=== PATIENT | female | born 1935 | race Caucasian/White ===

== ENCOUNTER → 2017-01-19 | Outpatient (CLI) | payer BC ==
[~2017-01-19] MED LIST: ACET325T9 PO; CALC600T4 PO; CHOL500016 PO; DULO30CA2 PO; FLUT16SP2 NS; GLUC100018 PO; GUAI600T47 PO; HYDR12.58 PO; LEVO150T PO; MULT-505 PO; NIFE60TA12 PO; NORT25CA PO; OMEG300C PO; POTA99TA4 PO; PROP80CA3 PO; SIMV40TA3 PO
--- NOTE | 2017-01-19 14:33 | RAD ---
APPROVED REPORT Patient Location : OUT-PATIENT Indications venous insufficiency Deep System Deep Venous Reflux present : Yes Greater Saphenous Veins (GSV) Significant venous relux noted in the LEFT GSV at the following levels : Superficial Femoral Junction , Proximal Thigh Findings Lui scale images of the right great saphenous vein do not demonstrate any evidence of thrombus on li mited imaging. The right great saphenous vein measures 4.3 mm and does not reflux. The right lesser s aphenous vein also does not show any evidence of reflux. The left great saphenous vein at the saphenofemoral junction and on limited imaging throughout its co urse does not demonstrate any evidence of thrombus. The great saphenous vein measures approximately 6 .1 mm in reflux is approximately 2.2 seconds in the proximal segments. The left lesser saphenous vein does not show any evidence of reflux. Critical Notification Critical Value: No <Conclusion> 1. Positive for reflux in the left greater saphenous vein. Otherwise grossly normal.
== END | disposition home or self-care (01) ==
LOC: US 12:08
PROVIDERS: ATTEND Internal Medicine Cardiovascular Disease
DX: I87.2 Venous insufficiency (chronic) (peripheral) (principal); K21.9 Gastro-esophageal reflux disease without esophagitis
CPT/HCPCS: 93970

== ENCOUNTER → 2017-01-20 | Outpatient (CLI) | payer BC ==
[~2017-01-20] MED LIST changes: +REGADENOSON 0.4 MG/5 ML DISP.SYRIN. IV ONE
--- NOTE | 2017-01-20 10:42 | CARD ---
APPROVED REPORT EXAM: Two-dimensional and M-mode echocardiogram with Doppler and color Doppler. Other Information Quality : GoodHR: 60bpm Rhythm : PVC's INDICATION Aortic insufficiency RISK FACTORS Hypertension 2D DIMENSIONS RVDd2.5 (2.9-3.5cm)Left Atrium(2D)3.7 (1.6-4.0cm) IVSd0.9 (0.7-1.1cm)Aortic Root(2D)2.9 (2.0-3.7cm) LVDd5.7 (3.9-5.9cm)LVOT Diameter2.4 (1.8-2.4cm) PWd0.8 (0.7-1.1cm)LVDs4.0 (2.5-4.0cm) FS (%) 30.1 %SV91.6 ml LVEF(%)56.6 (>50%) Aortic Valve AoV Peak Jose.108.5cm/sAoV VTI22.0cm AO Peak GR.4.7mmHgLVOT Peak Jose.88.3cm/s AO Mean GR.2mmHgAVA (VMAX)3.72cm2 AI P 1/2 Pyvo193ef Mitral Valve MV E Pmfugfif05.1cm/sMV E Peak Gr.2mmHg MV DECEL [id number] A Fhxhgyzz17.6cm/s MV E Mean Gr.1mmHgE/A Ratio0.8 MV A Nqofeevm174kr Pulmonary Valve PV Peak Ltpglkph42.8cm/s Tricuspid Valve TR P. Obcduhnk458bm/sTR Peak Gr.33mmHg Pulmonary Vein S1 Bcbvukwm47.6cm/sD2 Mawsdxtd91.7cm/s PVa qkdhnfmd80xzvj LEFT VENTRICLE The left ventricle is normal size. There is normal left ventricular wall thickness. The left ventricu lar systolic function is normal and the ejection fraction is within normal range. The Ejection Fracti on is 50-55%. There is normal LV segmental wall motion. Transmitral Doppler flow pattern is Grade I-a bnormal relaxation pattern. RIGHT VENTRICLE The right ventricle is normal size. There is normal right ventricular wall thickness. The right ventr icular systolic function is normal. ATRIA The left atrium is mildly dilated. The right atrium size is normal. The interatrial septum is intact with no evidence for an atrial septal defect or patent foramen ovale as noted on 2-D or Doppler imagi ng. AORTIC VALVE The aortic valve is mildly sclerotic. The aortic valve is trileaflet. Doppler and Color Flow revealed mild to moderate aortic regurgitation. There is no significant aortic valvular stenosis. MITRAL VALVE Mitral annular calcification is mild. The mitral valve leaflets are thickened. There is borderline mi tral valve prolapse of the posterior leaflet. There is no mitral valve stenosis. Doppler and Color Fl ow revealed mild mitral regurgitation. TRICUSPID VALVE Doppler and Color Flow revealed mild tricuspid regurgitation. The pulmonary artery systolic pressure is estimated at 36 mmHg. PULMONIC VALVE Doppler and Color Flow revealed mild pulmonic valvular regurgitation. There is no pulmonic valvular s tenosis. GREAT VESSELS The aortic root is normal in size. The ascending aorta is normal in size. The IVC is normal in size a nd collapses >50% with inspiration. PERICARDIAL EFFUSION There is no evidence of significant pericardial effusion. Critical Notification Critical Value: No <Conclusion> The left ventricular systolic function is normal and the ejection fraction is within normal range. Th e Ejection Fraction is 50-55%. There is normal LV segmental wall motion. Doppler and Color Flow revealed mild to moderate aortic regurgitation.
--- NOTE | 2017-01-20 12:50 | RAD ---
APPROVED REPORT Test Type: Pharmacological Stress Nurse/Tech: Allen Loera RN Test Indications: Dyspnea on exertion Cardiac History: see ehr Medications: see ehr Medical History: see ehr Resting ECG: SR w/ PAC Resting Heart Rate: 72 bpm Resting Blood Pressure: 131/62mmHg Pretest Chest Pain: None Nurse/Tech Notes Lungs CTA, S1, S2 Consent: The procedure was explained to the patient in lay terms. Informed consent was witnessed. Norm eout was entered into [employer]. History and Stress Test performed by [facility] L [employer] Details Pharmacologic stress testing was performed using 0.4mg per 5ml of regadenoson given intravenously ove r 7-10 seconds. Stress Symptoms No chest pain or symptoms. POST EXERCISE Reason for Termination: Infusion complete Max HR: 95 bpm Max Blood Pressure: 129/63mmHg Blood Pressure response to exercise: Normal blood pressure response during stress. Chest Pain: No. Arrhythmia: No. ST Change: No. INTERPRETATION Stress EKG Conclusion: Baseline EKG showed sinus rhythm with PAC's. No ischemic changes at peak stre ss. No arrhythmias. Imaging Protocol IMAGE PROTOCOL: Rest Tc-99m/stress Tc-99m 1 day Rest: Stress: Viability: Radiopharm.Tc99m NtfpzmirrWx73m Sestamibi Dose11.3mCi 32mCi Duration 15min. 10min. Img Date 01/20/2017 01/20/2017 Inj-Img Dfvo79zeu. 60min. Rest Admin Site:IV - Left AntecubitalAdministrator:DIAMOND Balderrama Stress Admin Site: IV - Left AntecubitalAdministrator: GRACIELA Chan, ARRT (R)(N) STRESS DATA End Diast. Vol.66.0mlAv. Heart Rate81.0bpm End Syst. Vol.16.0mlCO Index BSA0.0L/min Myocardial Olwm499.0gEject. Qmkwqgpc72.0% Stress Rates Pk. Fill Rate3.83EDV/secLVtime Pk. Fill 209.83msec Pk. Empty Rate4.59ESV/secLVtime Pk. Ydbvl930.18msec 08/11 Pk. Fill0.56EDV/sec Stress Scores Regional WT0.00Summed WT4.00 Regional WM0.00Summed WM0.00 Study quality was good. Left Ventricular size was Normal at Rest and Stress. Lung uptake was Normal. Left Ventricular ejection fraction is 76%. The rest and stress images show normal perfusion, normal contraction and thickening. LV Perf. Quant 17 Seg. SSS3.00 17 Seg. SRS5.00 17 Seg. SDS0.00 Stress Defect Extent (% LAD)0.00Rest Defect Extent (% LAD)0.00Rev. Defect Extent (% LAD)0.00 Stress Defect Extent (% LCX) 22.50Rest Defect Extent (% LCX)36.30Rev. Defect Extent (% LCX)0.00 Stress Defect Extent (% RCA)0.00Rest Defect Extent (% RCA)0.00Rev. Defect Extent (% RCA)0.00 Stress Defect Extent (% KITTY)4.60Rest Defect Extent (% KITTY)10.70Rev. Defect Extent (% KITTY)0.00 Conclusion 1. Regadenoson cardioisotope stress test did not show any evidence of ischemia or infarct. 2. Normal left ventricular systolic function with ejection fraction calculated at 76%. 3. Low risk for cardiac events.
== END | disposition home or self-care (01) ==
LOC: ECHO 07:45
PROVIDERS: ATTEND Internal Medicine Cardiovascular Disease
DX: I08.3 Combined rheumatic disorders of mitral, aortic and tricuspid valves (principal)
CPT/HCPCS: 78452; 93017; 93306; 96374; 96375; 96376; A9500; J2785

== ENCOUNTER → 2017-07-12 | Outpatient (CLI) | payer BC ==
[~2017-07-12] MED LIST changes: +LIDOCAINE 1%/EPI 1:100,000 50 ML, SODIUM BICARBONATE VIAL 5 MEQ in IV NORMAL SALINE 100... SQ ONE; -REGADENOSON 0.4 MG/5 ML DISP.SYRIN. IV ONE
--- NOTE | 2017-07-12 13:38 | CARD ---
APPROVED REPORT Patient StatusOUT-PATIENT Clinical Aide: Eli Carnes RVT; Lion Singer Procedure(s) performed: Endovenous radiofrequency ablation of the left greater saphenous vein. INDICATION FOR PROCEDURE The indication(s) include : Symptomatic Chronic Venous Insufficiency with Varicose Veins, lower extre mity pain and edema. PROCEDURE NARRATIVE The patient was transferred to the procedure suite and the insufficient saphenous vein was mapped by ultrasound and diagrammed on the underlying skin. The depth and diameter of the vein(s) to be treate d was documented. The varicose tributary veins and suitable access sites were identified and mapped as well. The patient was then positioned supine on the procedure table. The entire limb was sterile ly prepared and the lower extremity and treatment table were sterilely draped. The RF catheter was placed on the sterile field, flushed and wiped down, prepared, and connected by a sterile cable. The patient was placed in reverse-Trendelenburg position and local anesthesia was instilled in the sk in overlying the access site. A skin incision was made overlying the identified and mapped greater s aphenous vein entry site. The vein was punctured through the incision and using ultrasound guidance and the Seldinger technique a guide wire was introduced through the needle which was then exchanged o ebony the guide wire for a 7 F sheath. The guide wire was removed and the sheath was flushed. The RF probe was placed into the vein through the sheath and positioned at a point just distal (about 0.5 to 1 cm) to the entrance point of the superficial epigastric artery using ultrasound guidance. After the RF probe position was verified by the ultrasound, tumescent anesthesia was infiltrated, und er ultrasound guidance, precisely into the perivenuus compartment along the entire length of vein fro m the entry site to the saphenofemoral junction until a "halo" of fluid was noted around the vein. The patient was then placed in Trendelenburg position. After the RF probe position was again confirm ed with ultrasound imaging, moderate external compression was applied over the RF heating element, an d RF energy was applied. The probe was withdrawn sequentially in 6.5 cm steps with slight overlap of 7 cm segments of ablation and monitored to keep the probe temperature at 120 degrees Celsius and the generator output well below its maximum power. Treatment Segments: 10 Total Length: 52 cm. Tot al Ablation time: 3 minutes 20 seconds. Repeat ultrasound of the saphenous vein was performed confirming successful treatment. The catheter and sheath were withdrawn and hemostasis established with direct pressure. After assuring hemostasis , the skin incision over the saphenous vein was closed with a bandage and an external compression kartik ssing was applied from the level of the foot to the most proximal level of the thigh.
== END | disposition home or self-care (01) ==
LOC: VNUS 12:22
PROVIDERS: ATTEND Internal Medicine Cardiovascular Disease
DX: I87.2 Venous insufficiency (chronic) (peripheral) (principal); I83.892 Varicose veins of left lower extremity with other complications; Z88.1 Allergy status to other antibiotic agents; Z88.2 Allergy status to sulfonamides; Z88.8 Allergy status to other drugs, medicaments and biological substances
CPT/HCPCS: 36475; J3490; J7030

== ENCOUNTER → 2017-07-13 | Outpatient (CLI) | payer BC ==
[~2017-07-13] MED LIST changes: -LIDOCAINE 1%/EPI 1:100,000 50 ML, SODIUM BICARBONATE VIAL 5 MEQ in IV NORMAL SALINE 100... SQ ONE
--- NOTE | 2017-07-13 15:12 | RAD ---
APPROVED REPORT Left Lower Extremity Venous Study for DVT Patient Location: OUT-PATIENT Indications Post Op GSV ablation 07-12-17; Check for DVT Findings Grayscale images of the left lower extremity do not reveal any evidence of thrombus in the common fem oral, superficial femoral, popliteal segments. The veins appear to be compressible. Below the knee th ere is spontaneous flow noted with gross compressibility also evident. The left great saphenous vein has thrombus consistent with recent ablation. There is no flow noted on color Doppler evaluation. Critical Notification Critical Value: No <Conclusion> 1. No evidence of DVT in the left lower extremity, status post successful left GSV ablation.
== END | disposition home or self-care (01) ==
LOC: KCIC US 12:39
PROVIDERS: ATTEND Internal Medicine Cardiovascular Disease
DX: I82.492 Acute embolism and thrombosis of other specified deep vein of left lower extremity (principal); Z98.890 Other specified postprocedural states
CPT/HCPCS: 93971

== ENCOUNTER → 2018-02-23 | Outpatient (CLI) | payer BC | END | disposition home or self-care (01) | LOC: ECHO 13:08 | DX: I08.3 Combined rheumatic disorders of mitral, aortic and tricuspid valves (principal) | CPT/HCPCS: 93306 ==

== ENCOUNTER → 2019-03-09 | Outpatient (CLI) | payer BC ==
--- NOTE | 2019-03-09 14:28 | CARD ---
MR#: [id number] Date of Study: 03/09/2019 Ordering Physician: GINNA NEFF, Referring Physician: GINNA NEFF, Tech: Eli Kessler APPROVED REPORT EXAM: Two-dimensional and M-mode echocardiogram with Doppler and color Doppler. Other Information Quality : AverageHR: 70bpm INDICATION Aortic Valve Disease RISK FACTORS Hypertension 2D DIMENSIONS Left Atrium(2D)3.0 (1.6-4.0cm)IVSd1.0 (0.7-1.1cm) Aortic Root(2D)2.7 (2.0-3.7cm)LVDd4.9 (3.9-5.9cm) LVOT Diameter2.2 (1.8-2.4cm)PWd0.9 (0.7-1.1cm) LVDs2.8 (2.5-4.0cm)FS (%) 43.6 % SV85.7 mlLVEF(%)74.6 (>50%) Aortic Valve AoV Peak Jose.113.0cm/sAoV VTI19.9cm AO Peak GR.5.1mmHgLVOT Peak Jose.74.4cm/s AO Mean GR.2mmHgAVA (VMAX)2.59cm2 AI P 1/2 Wjps379sw Mitral Valve MV E Bnxfuzsy07.4cm/sMV E Peak Gr.154mmHg MV DECEL [id number] A Urxhcqaz55.1cm/s MV E Mean Gr.1mmHgE/A Ratio0.7 Pulmonary Valve PV Peak Kvzrnxlk297.7cm/s Tricuspid Valve TR P. Tnegzhav163lv/sRAP CYVHRBGF5dfLi TR Peak Gr.40dkXpEKXK81ajZe Pulmonary Vein S1 Gbtoplsl18.1cm/sD2 Dzelijqy28.3cm/s PVa jhsncoke501dcqr LEFT VENTRICLE The left ventricle is normal size. There is normal left ventricular wall thickness. The left ventricu lar systolic function is normal. The Ejection Fraction is 55-60%. There is normal LV segmental wall m otion. Transmitral Doppler flow pattern is Grade I-abnormal relaxation pattern. RIGHT VENTRICLE The right ventricle is normal size. There is normal right ventricular wall thickness. The right ventr icular systolic function is normal. ATRIA The left atrium is borderline dilated. The right atrium size is normal. The interatrial septum is int act with no evidence for an atrial septal defect or patent foramen ovale as noted on 2-D or Doppler i maging. AORTIC VALVE The aortic valve is thickened but opens well. Doppler and Color Flow revealed mild to moderate aortic regurgitation. There is no significant aortic valvular stenosis. MITRAL VALVE The mitral valve is normal in structure and function. There is no evidence of mitral valve prolapse. There is no mitral valve stenosis. Doppler and Color-flow revealed mild mitral regurgitation. TRICUSPID VALVE The tricuspid valve is normal in structure and function. Doppler and Color Flow revealed mild to mode rate tricuspid regurgitation with an estimated PAP of 36 mmHg. There is no tricuspid valve prolapse o r vegetation. There is no tricuspid valve stenosis. PULMONIC VALVE The pulmonary valve is normal in structure and function. Doppler and Color Flow revealed trace pulmon ic valvular regurgitation. GREAT VESSELS The aortic root is normal in size. The IVC is normal in size and collapses >50% with inspiration. PERICARDIAL EFFUSION There is no evidence of significant pericardial effusion. Critical Notification Critical Value: No <Conclusion> The left ventricular systolic function is normal. The Ejection Fraction is 55-60%. There is normal LV segmental wall motion. Transmitral Doppler flow pattern is Grade I-abnormal relaxation pattern. Mild to moderate aortic regurgitation. Mild mitral regurgitation. Mild to moderate tricuspid regurgitation with an estimated PAP of 36 mmHg. There is no evidence of significant pericardial effusion. Signed by : Ginna Neff, Electronically Approved : 03/09/2019 14:27:32
== END | disposition home or self-care (01) ==
LOC: ECHO 13:06
PROVIDERS: ATTEND Internal Medicine Cardiovascular Disease
DX: I08.3 Combined rheumatic disorders of mitral, aortic and tricuspid valves (principal)
CPT/HCPCS: 93306

== ENCOUNTER → 2019-09-05 | Outpatient (CLI) | payer BC ==
[~2019-09-05] MED LIST changes: +SIMV40TA18 PO; -SIMV40TA3 PO
--- NOTE | 2019-09-05 11:53 | KCIC ---
EXAM: RIGHT UPPER QUADRANT ULTRASOUND. HISTORY: Right upper quadrant pain. COMPARISON: None. FINDINGS: Sonographic evaluation of the right upper quadrant was performed. The liver appears normal in parenchymal echotexture. There are no focal lesions. The gallbladder is unremarkable without evidence of stones, wall thickening or pericholecystic fluid. There is no sonographic Polanco sign. The common duct measures 6.5 mm. The visualized portions of the head and body of the pancreas reveal no abnormality. The right kidney measures at least 8.4 cm. Cortical thickness and echogenicity are preserved. There is no hydronephrosis. A cyst at the upper pole measures 3.5 x 2.6 x 2.9 cm. There are low-level internal echoes suggesting proteinaceous components. There is no clear solid component or internal perfusion. The visualized portions of the abdominal aorta and inferior vena cava are grossly patent and normal in caliber. IMPRESSION: 1. No cause for acute pain is identified. 2. The right kidney measures small at 8.4 cm suggesting mild atrophy. 3. Mildly complicated 3.5 cm cyst at the right renal upper pole, most likely benign. Follow-up could be considered in one year if there is persistent concern. Electronically signed by: Kathe Eugene MD (09/05/2019 11:50 AM) [facility]
== END | disposition home or self-care (01) ==
LOC: KCIC US 07:53
PROVIDERS: ATTEND Nurse Practitioner Family
DX: N28.1 Cyst of kidney, acquired (principal)
CPT/HCPCS: 76705

== ENCOUNTER → 2019-09-18 | Outpatient (CLI) | payer BC ==
--- NOTE | 2019-09-18 15:52 | KCIC ---
Renal ultrasound dated 09/18/2019. No comparison available. Clinical data indication: Follow-up right renal cyst. FINDINGS: Right kidney measures 9.1 cm in length. Left kidney measures 9.3 cm in length. There is a simple cyst at the upper pole right kidney that measures 3.1 cm maximum dimension. There is a simple cyst at the midpole left kidney that measures 3.2 cm maximum dimension. No apparent solid mass. No hydronephrosis. Urinary bladder is unremarkable. IMPRESSION: 1. No acute sonographic abnormality. No hydronephrosis. 2. Small simple cysts at each kidney. Electronically signed by: Luis Terry MD (09/18/2019 2:57 PM) [facility]
== END | disposition home or self-care (01) ==
LOC: KCIC US 08:42
PROVIDERS: ATTEND Internal Medicine
DX: N28.1 Cyst of kidney, acquired (principal)
CPT/HCPCS: 76770

== ENCOUNTER 2019-10-09 06:58 | Outpatient (CLI) | payer BC ==
[2019-10-09] VITALS (10 sets, daily range): BP systolic 103–157; BP diastolic 57–83
[~2019-10-09] VITALS: Ht 152.4 cm; Wt 72.6 kg
[2019-10-09] MEDS ORDERED: MELO15TA23 PO (07:30)
[2019-10-09] MEDS ORDERED: GABA300C18 PO (07:30)
[2019-10-09 07:33] LABS: CALCIUM 10.3 mg/dL (8.5-10.1); CREATININE 1.5 mg/dL (0.6-1.0); GFR 32.9; POTASSIUM 4.3 mmol/L (3.5-5.1)
[2019-10-09 07:34] LABS: HEMATOCRIT 34.7 % (36.0-47.0); HEMOGLOBIN 11.7 g/dL (12.0-15.5); RED BLOOD COUNT 3.62 x10^6/uL (3.50-5.40); RED CELL DISTRIBUTION WIDTH 12.7 % (11.5-14.5); WHITE BLOOD COUNT 9.8 x10^3/uL (4.0-11.0)
[2019-10-09] MEDS ORDERED: LIDOCAINE 1% PF 2 ML VIAL. ONE (07:43)
[2019-10-09] MEDS ORDERED: IODIXANOL 320 MG/ML 100 ML VIAL. ONE ×2 (07:43→09:03)
[2019-10-09 07:46] LABS: PROTHROMBIN TIME PATIENT 13.5 SEC (11.7-14.0)
[2019-10-09] MEDS ORDERED: fentaNYL PF VIAL 100 MCG/2 ML VIAL ONE (08:32)
[2019-10-09] MEDS ORDERED: MIDAZOLAM HCL/PF 2 MG/2 ML VIAL. ONE (08:32)
[2019-10-09] MEDS ORDERED: VERAPAMIL 5 MG/2 ML VIAL. ONE (08:33)
[2019-10-09] MEDS ORDERED: HEPARIN for IV BOLUS 10,000 UNIT/10 ML VIAL. ONE (08:33)
[2019-10-09] MEDS ORDERED: NITROGLYCERIN 200 MCG/2 ML SYRINGE FOR CATH/VASC LAB. ONE (08:33)
[2019-10-09] MEDS ORDERED: NITROGLYCERIN 200 MCG/2 ML SYRINGE FOR CATH/VASC LAB. IART ONE (09:15)
[2019-10-09] MEDS ORDERED: VERAPAMIL 5 MG/2 ML VIAL. IART ONE (09:15)
[2019-10-09] MEDS ORDERED: LIDOCAINE 1% PF 2 ML VIAL. INJ ONE (09:15)
[2019-10-09] MEDS ORDERED: HEPARIN for IV BOLUS 10,000 UNIT/10 ML VIAL. IART ONE (09:15)
[2019-10-09] MEDS ORDERED: CONTRAST GIVEN. MC PRN (09:15)
[2019-10-09] MEDS ORDERED: MIDAZOLAM HCL/PF 2 MG/2 ML VIAL. IV ONE (09:15)
[2019-10-09] MEDS ORDERED: fentaNYL PF VIAL 100 MCG/2 ML VIAL IV ONE (09:15)
[2019-10-09] MEDS ORDERED: IODIXANOL 320 MG/ML 100 ML VIAL. IART ONE (09:15)
[2019-10-09] MEDS ORDERED: IV 1/2 NORMAL SALINE 1,000 ML IV SCH (09:17)
--- NOTE | 2019-10-09 09:17 | PDOC ---
MODERATE SEDATION ASSESSMENT RISKS/ALTERNATIVES Risks/Alternatives Risks and alternatives of this type of sedation and procedure discussed with: RISK/ALTERNATIVES: Patient H & P ON CHART H & P H & P on chart and reviewed for co-morbid conditions and appropriate labs. H&P ON CHART: Yes STATUS PREG STATUS ASSESSED: N/A MEDS/ALLERGIES REVIEWED Meds/Allergies Reviewed Medications and Allergies including time and route of recently administered narcotics and sedatives. MEDS/ALLERGIES REVIEWED: Yes ASA RATING ASA RATING: III AIRWAY ASSESSMENT Airway Assessment Airway patency, oral function limitations, presence of caps, crowns, dentures, partials, and ability to extend neck assessed. AIRWAY ASSESSMENT: Yes MALLAMPATI SCORE MALLAMPATI SCORE: II PRE-SEDATION ASSESSMENT PRE-SEDATION ASSESSMENT: Yes GINNA GALINDO MD Oct 09, 2019 09:17
--- NOTE | 2019-10-09 09:24 | CARD ---
MR#: [id number] Date of Study: 10/09/2019 Ordering Physician: GINNA NEFF, Referring Physician: GINNA NEFF, Tech: Costa Reina APPROVED REPORT Technologist: Costa Reina Nurse: Zabrina Thompson Procedure(s) performed: Left heart catheterization, selective coronary angiography via right transrad ial approach fl time: 4.7 mins dose: 25 gycm2 contrast: 80 ml moderate sedation: 31 mins INDICATION The indication(s) include : unstable angina . CSHA Clinical Frailty Scale HA Clinical Frailty Scale: Mildly Frail Heart Failure Heart Failure: No PROCEDURE NARRATIVE After explaining the risks, benefits and alternative options, informed consent was obtained from emma ent. Patient was brought to the cardiac [place] and right wrist was prepped and draped in the usual fashion after confirming a positive modified Hubert's test. Arterial access was obtained in the rig t radial artery and a 6 Yemeni sheath was inserted. 6 Yemeni David catheter was used to perform brook ective angiography of the left and right coronary arteries. LVEDP and transaortic gradients were andrea ured. Left ventriculography was not performed since recent 2-D echo showed normal LV systolic functio n. Patient tolerated the procedure well. Hemostasis was achieved using TR band. There were no immed iate complications. The following findings were noted. FINDINGS 1. Hemodynamics: Left ventricular end-diastolic pressure of 22 mmHg consistent with mild acute on ch ronic diastolic heart failure. No pullback gradient across the aortic valve. 2. Left ventriculography: Normal left ventricle systolic function with ejection fraction estimated at 60%. No significant mitral regurgitation seen. 3. Coronary angiography: a. The left main coronary artery arose from the left sinus of Valsalva, gave rise to the left anteri or descending and left circumflex arteries and did not show any significant stenosis. b. The left anterior descending artery showed 30% stenosis in the midsegment. c. The left circumflex artery did not show any significant stenosis. d. The right coronary artery was a dominant vessel arising from the right sinus of Valsalva that did not show any significant stenosis. Conclusion 1. 30% stenosis involving left anterior descending artery without any lesions needing intervention. 2. Mild acute on chronic diastolic heart failure as evidenced by elevated LVEDP. Recommendations Medical Therapy Signed by : Ginna Neff, Electronically Approved : 10/09/2019 09:24:08
[2019-10-09] MEDS ORDERED: NITROGLYCERIN SUBLINGUAL 0.4 MG BOTTLE OF 25. SL PRN (09:30)
[2019-10-09] MEDS ORDERED: FUROSEMIDE 20 MG/2 ML VIAL. IVP ONE (09:45)
--- NOTE | 2019-10-09 11:35 | NUR ---
discharge instructions reviewed with pt and family. Pt ambulated and tolerated PO. PIv dc'd. right TR band removed and arm board reapplied. Pt home with family.
== END 2019-10-09 12:04 | disposition home or self-care (01) ==
LOC: CCL 06:58
PROVIDERS: ATTEND Internal Medicine Cardiovascular Disease
DX: I25.110 Atherosclerotic heart disease of native coronary artery with unstable angina pectoris (principal)
CPT/HCPCS: 36415; 80048; 85027; 85610; 93458; 99152; 99153; C1769; C1892; J1644; J1940; J2250; J3010; J3490; Q9967

== ENCOUNTER → 2020-08-20 | Outpatient (CLI) | payer BC ==
[2019-10-09 11:23] VITALS: BP 117/59
[~2020-08-20] MED LIST changes: -CALC600T4 PO; +CALC600T6 PO; +GABA300C18 PO; +MELO15TA23 PO
--- NOTE | 2020-08-20 13:27 | CARD ---
MR#: [id number] Date of Study: 08/20/2020 Ordering Physician: GINNA GALINDO, Referring Physician: GINNA GALINDO Tech: Luna Chung [facility] APPROVED REPORT EXAM: Two-dimensional and M-mode echocardiogram with Doppler and color Doppler. Other Information Quality : AverageHR: 72bpm Rhythm : NSR INDICATION Aortic Valve Disease RISK FACTORS Hypertension Hyperlipidemia 2D DIMENSIONS RVDd2.5 (2.9-3.5cm)Left Atrium(2D)3.9 (1.6-4.0cm) IVSd0.9 (0.7-1.1cm)Aortic Root(2D)3.4 (2.0-3.7cm) LVDd4.3 (3.9-5.9cm)LVOT Diameter2.0 (1.8-2.4cm) PWd0.9 (0.7-1.1cm)LVDs3.0 (2.5-4.0cm) FS (%) 31.0 %SV48.6 ml LVEF(%)59.1 (>50%) Aortic Valve AoV Peak Jose.90.3cm/sAoV VTI18.6cm AO Peak GR.3.3mmHgLVOT Peak Jose.91.0cm/s AO Mean GR.1mmHgAVA (VMAX)3.29cm2 AI P 1/2 Htjk201oz Pulmonary Valve PV Peak Dilaougk67.9cm/s Tricuspid Valve TR P. Xncwmspg227ws/sTR Peak Gr.25mmHg LEFT VENTRICLE The left ventricle is normal size. There is normal left ventricular wall thickness. The left ventricu lar systolic function is normal and the ejection fraction is within normal range. Estimated ejection fraction 50-55% There is normal LV segmental wall motion. Transmitral Doppler flow pattern is Grade I -abnormal relaxation pattern. RIGHT VENTRICLE The right ventricle is normal size. There is normal right ventricular wall thickness. The right ventr icular systolic function is normal. ATRIA The left atrium is mildly dilated. The right atrium is mildly dilated. The interatrial septum is inta ct with no evidence for an atrial septal defect or patent foramen ovale as noted on 2-D or Doppler im aging. AORTIC VALVE The aortic valve is thickened but opens well. Doppler and Color Flow revealed mild aortic regurgitati on. There is no significant aortic valvular stenosis. MITRAL VALVE The mitral valve is normal in structure and function. There is no evidence of mitral valve prolapse. There is no mitral valve stenosis. Doppler and Color-flow revealed mild to moderate mitral regurgitat ion. TRICUSPID VALVE The tricuspid valve is normal in structure and function. Doppler and Color Flow revealed mild tricusp id regurgitation. Estimated PAP 30 mmHg. There is no tricuspid valve stenosis. PULMONIC VALVE Doppler and Color Flow revealed trace pulmonic valvular regurgitation. There is no pulmonic valvular stenosis. GREAT VESSELS The aortic root is normal in size. The ascending aorta is normal in size. The IVC is normal in size a nd collapses >50% with inspiration. PERICARDIAL EFFUSION There is no evidence of significant pericardial effusion. Critical Notification Critical Value: No <Conclusion> The left ventricular systolic function is normal and the ejection fraction is within normal range. E stimated ejection fraction 50-55% There is normal LV segmental wall motion. Doppler and Color Flow revealed mild aortic regurgitation. Doppler and Color-flow revealed mild to moderate mitral regurgitation. Signed by : Ralph Atkins, Electronically Approved : 08/20/2020 13:27:13
== END ==
LOC: ECHO 11:00
PROVIDERS: ATTEND Internal Medicine Cardiovascular Disease
DX: I08.3 Combined rheumatic disorders of mitral, aortic and tricuspid valves (principal)
CPT/HCPCS: 93306

== ENCOUNTER → 2021-04-10 | Outpatient (CLI) | payer BC ==
[2019-10-09 11:23] VITALS: BP 117/59
[~2021-04-10] MED LIST changes: -CALC600T6 PO; +CALC600T60 PO; +REGADENOSON 0.4 MG/5 ML DISP.SYRIN. IV ONE
--- NOTE | 2021-04-10 16:07 | RAD ---
MR#: [id number] Date of Study: 04/10/2021 Ordering Physician: GINNA GALINDO, Referring Physician: ELYSSA BEDOYA Tech: RT Paolo Elizondo) (N) APPROVED REPORT Test Type: Pharmacological Stress Nurse/Tech: Anais Ortiz RN Test Indications: CAD Cardiac History: Hypertension Medications: See Electronic Medical Record Medical History: See Electronic Medical Record Resting ECG: SA with BBB and PACs and PVCs Resting Heart Rate: 86 bpm Resting Blood Pressure: 140/69mmHg Pretest Chest Pain: No chest pain Nurse/Tech Notes S1,S2 and lungs diminished in the bases. Consent: The procedure was explained to the patient in lay terms. Informed consent was witnessed. Norm eout was entered into [employer]. History and Stress Test performed by RT Paolo Griffith) (N) Pharm. Details Pharmacologic stress testing was performed using 0.4mg per 5ml of regadenoson given intravenously ove r 7-10 seconds. Stress Symptoms Headache POST EXERCISE Reason for Termination: Infusion complete Target HR: No Max HR: 108 bpm 96% of Maximum Predicted HR: 112 bpm Blood Pressure response to exercise: Normal blood pressure response during stress. Heart Rate response to exercise: WNL Chest Pain: No. Arrhythmia: Yes. PACs and PVCs ST Change: No. INTERPRETATION Stress EKG Conclusion: Baseline EKG showed sinus rhythm. No ischemic changes at peak stress. No arr hythmias. Imaging Protocol IMAGE PROTOCOL: Rest Tc-99m/stress Tc-99m 1 day Rest: Stress: Viability: Radiopharm.Tc99m JiwuypspcEe40p Sestamibi Dose10.4mCi 33mCi Duration 13min. 13min. Img Date 04/10/2021 04/10/2021 Inj-Img Otzs38djj. 60min. Rest Admin Site:IV - Left AntecubitalAdministrator:RT Paolo Griffith)(N) Stress Admin Site: IV - Left AntecubitalAdministrator: DIAMOND Balderrama STRESS DATA End Diast. Vol.64.0mlLVEDV index BSA38.0ml End Syst. Vol.19.0mlLVESV index BSA11.0ml Myocardial Bokr420.0gEject. Vukwgwgp91.0% Stress Scores Regional WT1.00Summed WT4.00 Regional WM0.00Summed WM2.00 Study quality was good. Left Ventricular size was Normal at Rest and Stress. Lung uptake was . Left Ventricular ejection fraction is 68%. The rest and stress images show normal perfusion, normal contraction and thickening. LV Perf. Quant 17 Seg. SSS0.00 17 Seg. SRS2.00 17 Seg. SDS0.00 Stress Defect Extent (% LAD)0.00Rest Defect Extent (% LAD)0.00Rev. Defect Extent (% LAD)0.00 Stress Defect Extent (% LCX) 0.00Rest Defect Extent (% LCX)10.00Rev. Defect Extent (% LCX)0.00 Stress Defect Extent (% RCA)0.00Rest Defect Extent (% RCA)0.00Rev. Defect Extent (% RCA)0.00 Stress Defect Extent (% KITTY)0.00Rest Defect Extent (% KITTY)2.60Rev. Defect Extent (% KITTY)0.00 Conclusion 1. Regadenoson cardioisotope stress test did not show any evidence of ischemia or infarct. 2. Normal left ventricular systolic function with ejection fraction calculated at 68%. 3. Low risk for cardiac events. Signed by : Ginna Galindo, Electronically Approved : 04/10/2021 16:07:02
== END ==
LOC: NM 08:55
PROVIDERS: ATTEND Internal Medicine Cardiovascular Disease
DX: I25.10 Atherosclerotic heart disease of native coronary artery without angina pectoris (principal); R51.9 Headache, unspecified
CPT/HCPCS: 78452; 93017; A9500; J2785

== ENCOUNTER 2021-05-25 20:42 | Emergency (ER) | payer BC ==
[~2021-05-25] VITALS: Ht 152.4 cm; Wt 70.0 kg
[~2021-05-25 20:42] MED LIST changes: -REGADENOSON 0.4 MG/5 ML DISP.SYRIN. IV ONE
[2021-05-25 21:51] LABS: BILIRUBIN,URINE NEGATIVE (NEG); CLARITY,URINE CLEAR; COLOR,URINE YELLOW; NITRITE,URINE NEGATIVE (NEG); PROTEIN,URINE NEGATIVE (NEG-TRACE)
[2021-05-25 21:55] LABS: BACTERIA,URINE 0 /HPF (0-FEW); WBC,URINE OCC /HPF (0-4)
[2021-05-25 21:57] LABS: BARBITURATES NEG (NEG); BENZODIAZEPINES NEG (NEG); CANNABINOIDS NEG (NEG); COCAINE NEG (NEG); METHADONE NEG (NEG); OPIATES NEG (NEG); PHENCYCLIDINE NEG (NEG)
[2021-05-25 22:02] LABS: AMPHETAMINE/METHAMPHETAMINE NEG (NEG)
[2021-05-25 22:05] LABS: BASO # 0.1 x10^3/uL (0.0-0.2); BASO % 1 % (0-3); EOS # 0.1 x10^3/uL (0.0-0.7); EOS % 2 % (0-3); HEMATOCRIT 35.7 % (36.0-47.0); HEMOGLOBIN 12.1 g/dL (12.0-15.5); LYMPH # 1.8 x10^3/uL (1.0-4.8); LYMPH % 27 % (24-48); MEAN CORPUSCULAR HEMOGLOBIN 33 pg (25-35); MEAN CORPUSCULAR HGB CONC 34 g/dL (31-37); MEAN CORPUSCULAR VOLUME 98 fL (79-100); MONO # 0.8 x10^3/uL (0.0-1.1); MONO % 13 % (0-9); NEUT # 3.8 x10^3/uL (1.8-7.7); NEUT % 57 % (31-73); PLATELET COUNT 259 x10^3/uL (140-400); RED BLOOD COUNT 3.64 x10^6/uL (3.50-5.40); RED CELL DISTRIBUTION WIDTH 13.5 % (11.5-14.5); WHITE BLOOD COUNT 6.7 x10^3/uL (4.0-11.0)
--- NOTE | 2021-05-25 22:07 | RAD ---
Exam: CT head INDICATION: Seizure TECHNIQUE: Sequential axial images through the head were obtained without the administration of IV co ntrast. Exposure: One or more of the following in the visualized dose reduction techniques were utilized for this examination: 1. Automated exposure control 2. Adjustment of the MA and/or KV according to patient size 3. Use of iterative of reconstructive technique Comparisons: None FINDINGS: No focal parenchymal lesion or hemorrhage is identified. There is no midline shift or sulcal effaceme nt. Patchy hypodensity in the periventricular white matter. No acute vascular territory infarction is gia ntified. Lui-white distinction is preserved. The ventricular system is within normal limits without compression hydrocephalus. The basal cisterns are well maintained. The visualized portions of the paranasal sinuses and mastoid air cells are well-pneumatized. No acute fractures. IMPRESSION: Moderate small vessel schema change, technically age indeterminate without recent prior imaging. Electronically signed by: Gloria Chandra MD (05/25/2021 10:04 PM) [facility]
--- NOTE | 2021-05-25 22:13 | RAD ---
Exam: Chest one view INDICATION: Seizure TECHNIQUE: Frontal view of the chest Comparisons: None FINDINGS: The cardiomediastinal silhouette and pulmonary vessels are within normal limits. The lung and pleural spaces are clear. Moderate-sized hiatal hernia. IMPRESSION: No acute cardiopulmonary process. Electronically signed by: Gloria Chandra MD (05/25/2021 10:10 PM) [facility]
[2021-05-25 22:23] LABS: CALCIUM 8.8 mg/dL (8.5-10.1); CREATININE 1.3 mg/dL (0.6-1.0); GFR 38.7; POTASSIUM 3.3 mmol/L (3.5-5.1)
[2021-05-25 22:29] LABS: ALBUMIN 3.2 g/dL (3.4-5.0); ALBUMIN/GLOBULIN RATIO 0.9 (1.0-1.7); TOTAL BILIRUBIN 0.3 mg/dL (0.2-1.0); TOTAL PROTEIN 6.7 g/dL (6.4-8.2)
--- NOTE | 2021-05-25 22:31 | PHYS DOC ---
Past Medical History Past Medical History: CAD, Hypertension Smoking Status: Never Smoker Alcohol Use: None General Adult EDM: Chief Complaint: SEIZURE HPI: HPI: Patient is a 86 year old female with a history of CAD, hypertension, who presen ts to the ED today to be evaluated for possible seizure. Patient's daughter states they were in a family meeting, patient stood up to give a speech, they state her eyes rolled back and she was stiff for a few seconds, patient did not fall. Patient did not void on herself or bite her tongue patient can remember everything that happened denies any LOC. Patient has no previous history of seizures. 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 Review of Systems: Review of Systems: Constitutional: Denies fever or chills. [] Eyes: Denies change in visual acuity. [] HENT: Denies nasal congestion or sore throat. [] Respiratory: Denies cough or shortness of breath. [] Cardiovascular: Denies chest pain or edema. [] GI: Denies abdominal pain, nausea, vomiting, bloody stools or diarrhea. [] : Denies dysuria. [] Musculoskeletal: Denies back pain or joint pain. [] Integument: Denies rash. [] Neurologic: Reports possible seizure. Denies headache, focal weakness or sensory changes. [] Psychiatric: Denies depression or anxiety. [] Heart Score: C/O Chest Pain: N/A Risk Factors: Risk Factors: DM, Current or recent (<one month) smoker, HTN, HLP, family history of CAD, obesity. Risk Scores: Score 0 - 3: 2.5% MACE over next 6 weeks - Discharge Home Score 4 - 6: 20.3% MACE over next 6 weeks - Admit for Clinical Observation Score 7 - 10: 72.7% MACE over next 6 weeks - Early Invasive Strategies Allergies: Allergies: Allergies Coded Allergies Type Severity Reaction Last Updated Verified ciprofloxacin Allergy Severe Rash 07/12/17 Yes Sulfa (Sulfonamide Antibiotics) Allergy Mild Headache 12/07/13 Yes alendronate sodium Allergy Unknown Unknown 07/12/17 Yes nabumetone Allergy Unknown Nausea 07/12/17 Yes Physical Exam: PE: Constitutional: Well developed, well nourished, no acute distress, non-toxic appearance. [] HENT: Normocephalic, atraumatic, bilateral external ears normal, oropharynx moist, no oral exudates, nose normal. [] Eyes: PERRLA, EOMI, conjunctiva normal, no discharge. [] Neck: Normal range of motion, no tenderness, supple, no stridor. [] Cardiovascular:Heart rate regular rhythm, no murmur [] Lungs & Thorax: Bilateral breath sounds clear to auscultation [] Abdomen: Bowel sounds normal, soft, no tenderness, no masses, no pulsatile masses. [] Skin: Warm, dry, no erythema, no rash. [] Back: No tenderness, no CVA tenderness. [] Extremities: No tenderness, no cyanosis, no clubbing, ROM intact, no edema. [] Neurologic: Alert and oriented X 3, normal motor function, normal sensory fu nction, no focal deficits noted. Cranial nerves II through XII intact Psychologic: Affect normal, judgement normal, mood normal. [] Current Patient Data: Labs: Laboratory Tests Test 05/25/21 21:10 05/25/21 21:48 Urine Collection Type Unknown Urine Color Yellow Urine Clarity Clear Urine pH 6.0 (<5.0-8.0) Urine Specific Allen 1.010 (1.000-1.030) Urine Protein Negative mg/dL (NEG-TRACE) Urine Glucose (UA) Negative mg/dL (NEG) Urine Ketones (Stick) Negative mg/dL (NEG) Urine Blood Large (NEG) Urine Nitrite Negative (NEG) Urine Bilirubin Negative (NEG) Urine Urobilinogen Dipstick 1.0 mg/dL (0.2 mg/dL) Urine Leukocyte Esterase Negative (NEG) Urine RBC 11-20 /HPF (0-2) Urine WBC Occ /HPF (0-4) Urine Squamous Epithelial Cells Few /LPF Urine Bacteria 0 /HPF (0-FEW) Urine Opiates Screen Neg (NEG) Urine Methadone Screen Neg (NEG) Urine Barbiturates Neg (NEG) Urine Phencyclidine Screen Neg (NEG) Urine Amphetamine/Methamphetamine Neg (NEG) Urine Benzodiazepines Screen Neg (NEG) Urine Cocaine Screen Neg (NEG) Urine Cannabinoids Screen Neg (NEG) Urine Ethyl Alcohol Neg (NEG) White Blood Count 6.7 x10^3/uL (4.0-11.0) Red Blood Count 3.64 x10^6/uL (3.50-5.40) Hemoglobin 12.1 g/dL (12.0-15.5) Hematocrit 35.7 % (36.0-47.0) L Mean Corpuscular Volume 98 fL (79-100) Mean Corpuscular Hemoglobin 33 pg (25-35) Mean Corpuscular Hemoglobin Concent 34 g/dL (31-37) Red Cell Distribution Width 13.5 % (11.5-14.5) Platelet Count 259 x10^3/uL (140-400) Neutrophils (%) (Auto) 57 % (31-73) Lymphocytes (%) (Auto) 27 % (24-48) Monocytes (%) (Auto) 13 % (0-9) H Eosinophils (%) (Auto) 2 % (0-3) Basophils (%) (Auto) 1 % (0-3) Neutrophils # (Auto) 3.8 x10^3/uL (1.8-7.7) Lymphocytes # (Auto) 1.8 x10^3/uL (1.0-4.8) Monocytes # (Auto) 0.8 x10^3/uL (0.0-1.1) Eosinophils # (Auto) 0.1 x10^3/uL (0.0-0.7) Basophils # (Auto) 0.1 x10^3/uL (0.0-0.2) Laboratory Tests 05/25/21 21:48 EKG: EK interpreted by Dr. Castro sinus rhythm with PVCs, heart rate 83 no STEMI [] Radiology/Procedures: Radiology/Procedures: []PROCEDURE: CT HEAD WO CONTRAST Exam: CT head INDICATION: Seizure TECHNIQUE: Sequential axial images through the head were obtained without the administration of IV contrast. Exposure: One or more of the following in the visualized dose reduction techniques were utilized for this examination: 1. Automated exposure control 2. Adjustment of the MA and/or KV according to patient size 3. Use of iterative of reconstructive technique Comparisons: None FINDINGS: No focal parenchymal lesion or hemorrhage is identified. There is no midline shift or sulcal effacement. Patchy hypodensity in the periventricular white matter. No acute vascular territory infarction is identified. Lui-white distinction is preserved. The ventricular system is within normal limits without compression hydrocephalu s. The basal cisterns are well maintained. The visualized portions of the paranasal sinuses and mastoid air cells are well- pneumatized. No acute fractures. IMPRESSION: Moderate small vessel schema change, technically age indeterminate without recent prior imaging. Electronically signed by: Gloria Ritter MD (05/25/2021 10:04 PM) [facility] DICTATED and SIGNED BY: GLORIA RITTER MD DATE: 05/25/[id number] 0 PROCEDURE: PORTABLE CHEST 1V Exam: Chest one view INDICATION: Seizure TECHNIQUE: Frontal view of the chest Comparisons: None FINDINGS: The cardiomediastinal silhouette and pulmonary vessels are within normal limits. The lung and pleural spaces are clear. Moderate-sized hiatal hernia. IMPRESSION: No acute cardiopulmonary process. Electronically signed by: Gloria Ritter MD (05/25/2021 10:10 PM) [facility] DICTATED and SIGNED BY: GLORIA RITTER MD DATE: 05/25/[id number] 0 Course & Med Decision Making: Course & Med Decision Making Pertinent Labs and Imaging studies reviewed. (See chart for details) This is a 86-year-old female patient presenting to the ED today to be evaluated for possible seizure. Patient was in a family meeting and was about to give a speech when the state her eyes rolled back and she was stiff for a few couple seconds. Patient states she was able to recall everything. There was no tongue bitting or voiding on herself. She has no previous history of seizures. Vitals on arrival to the ED temperature 98.2, heart rate 81, respirations 16 on room air, O2 sats 95%, the patient was initially 165/70, it came down after patient settled in the room to 120s over 80s. CT of the head is negative for any acute findings, chest x-ray is negative. Lactic is normal, this patient likely did not have a seizure CBC CMP UA with nothing really acute Patient does continue to be alert oriented x4 no distress. Patient patient and daughter. Discharge to home. Follow-up with PCP in the course of this week Gabriel Disclaimer: Gabriel Disclaimer: This electronic medical record was generated, in whole or in part, using a voice recognition dictation system. Departure Departure Impression: Primary Impression: Well adult health check Disposition: HOME / SELF CARE / HOMELESS Condition: STABLE Referrals: NIA CROWE MD (PCP) follow up in the course of this week Patient Instructions: Health Maintenance, Females Additional Instructions: You were evaluated in the emergency room. Your work-up including a CT of the head, chest x-ray, EKG and labs as well as urine were negative for any acute findings. Please follow-up with your own doctors in the course of this week or next week. Come back to the ED at any point symptoms worsen RUPAL PULIDO APRN May 25, 2021 22:31
[2021-05-25 22:38] VITALS: BP 128/59
--- NOTE | 2021-05-26 00:11 | EKG ---
[facility] [address] [place] [address] Test Date: 2021-05-25 Test Time: 21:16:06 Pat Name: WAI YEUNG Department: Room: Gender: F Assembly Lead Person: : 1935 Requested By: RUPAL PULIDO Order Number: [id number] Reading MD: Ralph Atkins MD Measurements Intervals [place] Rate: 80 P: [place]: QRS: -25 QRSD: 106 T: 15 QT: 384 QTc: 447 Interpretive Statements SR PVC NON-SPECIFIC ST/T CHANGES Electronically Signed On 05-26-2021 10:19:56 CDT by Ralph Atkins MD
== END 2021-05-25 23:12 | disposition home or self-care (01) ==
LOC: ER 20:42
DX: R56.9 Unspecified convulsions (principal); I10 Essential (primary) hypertension; I25.10 Atherosclerotic heart disease of native coronary artery without angina pectoris; M47.812 Spondylosis without myelopathy or radiculopathy, cervical region; Z88.1 Allergy status to other antibiotic agents; Z88.2 Allergy status to sulfonamides; Z88.8 Allergy status to other drugs, medicaments and biological substances
CPT/HCPCS: 36415; 70450; 71045; 80053; 80307; 81001; 83605; 83735; 83880; 84443; 84484; 85025; 93005; 99285-25

== ENCOUNTER → 2021-07-01 | Outpatient (CLI) | payer BC ==
[~2021-07-01] MED LIST changes: +IOHEXOL 300 MG/ML 100ML VIAL. IV ONE
--- NOTE | 2021-07-01 13:41 | KCIC ---
CT angiography head and neck without and with contrast Stenosis calculations for CT, MR, and conventional angiography are based upon measurements of the dis melo ICA diameter in accordance with the NASCET methodology. Stenosis calculations for carotid ultraso und studies are derived from validated velocity criteria which are known to correlate with the NASCET methodology. HISTORY: Syncope. Hypertension. Dizziness. TECHNIQUE: Noncontrast imaging of the head and postcontrast CT imaging of the head and neck with 3-D MIP reconstructions of the arteries with 100 mL Omnipaque 300 intravenous contrast. COMPARISON: CT head May 25, [address] head findings: Mild generalized brain atrophy is stable. No intracranial hemorrhage, m ass, hydrocephalus or infarction. Orbits, mastoids and bones are unremarkable. CTA neck findings: No significant ostial stenosis of the arteries from the aortic arch. Codominant ve rtebral arteries with mild tortuosity of the vessels within the neck no plaquing, significant stenosi s, thrombus, dissection or occlusion the vertebral arteries. Left carotid artery demonstrates tortuosity of the vessel. There is calcified plaque at the bifurcati on and proximal internal carotid artery without significant stenosis with narrowing of no more than 2 5%. No thrombus, dissection or occlusion. Right carotid artery demonstrates tortuosity of the vessel, minimal calcified plaque at the bifurcati on without measurable stenosis. No dissection, thrombus or occlusion. There are centrilobular type small nodules of the right upper lobe measuring 1 to 3 mm in size and th ere is a larger solid 6 mm nodule image 46. Facet spurring and disc bulges cervical spine with neural foraminal stenoses. CTA head findings: Tortuosity of the intracranial arteries can be observed with longstanding hyperten jesus. Thin calcified plaque cavernous carotid arteries without measurable stenosis. There is no signi ficant stenosis, thrombus, occlusion or aneurysm of the intracranial arteries. IMPRESSION: 1. No large vessel occlusion. 3. Mild plaquing of the arteries of the head and neck without significant stenosis. 3. No acute intracranial CT abnormality. 4. Centrilobular type nodules of the right upper lobe typical of an endobronchial infectious or infla mmatory process. There is also a larger 6 mm solid pulmonary nodule which is indeterminate. Consider further assessment with dedicated CT chest imaging. Electronically signed by: Remigio Shipley MD (07/01/2021 1:39 PM) [facility]
== END ==
LOC: KCIC CT 09:03
PROVIDERS: ATTEND Nurse Practitioner Family
DX: I70.8 Atherosclerosis of other arteries (principal); R91.8 Other nonspecific abnormal finding of lung field; G31.9 Degenerative disease of nervous system, unspecified; I77.1 Stricture of artery; R55 Syncope and collapse
CPT/HCPCS: 70496; 70498; 82565; Q9967

== ENCOUNTER → 2021-07-08 | Outpatient (CLI) | payer BC ==
[~2021-07-08] MED LIST changes: -IOHEXOL 300 MG/ML 100ML VIAL. IV ONE
--- NOTE | 2021-07-11 20:53 | EEG ---
DATE OF SERVICE: 07/08/2021 ELECTROENCEPHALOGRAM EEG NUMBER: [id number]. OBJECTIVE: The patient is an 86-year-old female with episodes of syncope. DESCRIPTION: This is a digital study. Electrodes were placed according to the international 10-20 system. Bipolar and referential montages are available. Activation procedures typically include hyperventilation and intermittent photic stimulation. INTERPRETATION: The waking background consists of 9 to 10 Hz, 50-100 microvolt activity, symmetrically distributed over parietooccipital regions and reactive to eye opening. Hyperventilation and intermittent photic stimulation are noncontributory. Stage 1 sleep is achieved with normal electroencephalogram patterns. IMPRESSION: This electroencephalogram with the patient awake and asleep is within normal limits. There is no focal, paroxysmal, or epileptiform activity. Thank you for letting us help with the patient's care. LUCAS DR: Yovanny TID: [id number]
== END ==
LOC: RT 08:56
PROVIDERS: ATTEND Nurse Practitioner Family
DX: R55 Syncope and collapse (principal); R56.9 Unspecified convulsions
CPT/HCPCS: 95816

== ENCOUNTER → 2021-11-24 | Outpatient (CLI) | payer BC ==
[~2021-11-24] MED LIST changes: +BARIUM SULFATE 340 GM SUSPENSION. PO ONE; +BARIUM SULFATE 60% 355 ML SUSP PO ONE; +BARIUM SULFATE 700 MG TABLET PO ONE; +SIMETHICONE/SOD BICARB/CITRIC ACID PACKET. PO ONE
--- NOTE | 2021-11-24 09:18 | RAD ---
EXAMINATION: DG BARIUM SWALLOW 11/24/2021 8:03 AM HISTORY: Dysphagia. Esophageal stricture. COMPARISON: None. TECHNIQUE: The patient swallowed effervescent crystals followed by thick and thin barium and was obse rved swallowing under fluoroscopy. FINDINGS: No definite mucosal abnormality. There is a moderate to large hiatal hernia. Evaluation of distal eso phageal mucosa is limited due to the hiatal hernia. No definite stricture. There is esophageal dysmot ility with tertiary contractions and pooling of barium in the esophagus to the thoracic inlet. Total fluoroscopic time:2.7 minutes. 10 fluoroscopic images and fourth clips were saved. Dose: 19.9 m Gy. IMPRESSION: 1. Moderate to large hiatal hernia. 2. Esophageal dysmotility with tertiary contractions and pooling of barium in the esophagus to the th oracic inlet. Electronically signed by: Addis Bateman MD (11/24/2021 9:15 AM) [id number]
== END ==
LOC: RAD 07:46
PROVIDERS: ATTEND Internal Medicine Critical Care Medicine
DX: K44.9 Diaphragmatic hernia without obstruction or gangrene (principal); K22.2 Esophageal obstruction
CPT/HCPCS: 74220

== ENCOUNTER 2021-12-18 12:20 | Emergency (ER) | payer BC ==
[~2021-12-18] VITALS: Ht 152.4 cm; Wt 70.0 kg
[~2021-12-18 12:20] MED LIST changes: -BARIUM SULFATE 340 GM SUSPENSION. PO ONE; -BARIUM SULFATE 60% 355 ML SUSP PO ONE; -BARIUM SULFATE 700 MG TABLET PO ONE; -SIMETHICONE/SOD BICARB/CITRIC ACID PACKET. PO ONE
[2021-12-18] MEDS ORDERED: IV NORMAL SALINE 1000ML BAG 1,000 ML IV ONE (13:15)
[2021-12-18 13:23] LABS: BASO # 0.1 x10^3/uL (0.0-0.2); BASO % 1 % (0-3); EOS # 0.1 x10^3/uL (0.0-0.7); EOS % 2 % (0-3); HEMOGLOBIN 12.6 g/dL (12.0-15.5); LYMPH # 2.4 x10^3/uL (1.0-4.8); LYMPH % 35 % (24-48); MEAN CORPUSCULAR HEMOGLOBIN 33 pg (25-35); MEAN CORPUSCULAR HGB CONC 33 g/dL (31-37); MEAN CORPUSCULAR VOLUME 99 fL (79-100); MONO # 0.6 x10^3/uL (0.0-1.1); MONO % 8 % (0-9); NEUT # 3.7 x10^3/uL (1.8-7.7); NEUT % 54 % (31-73); PLATELET COUNT 255 x10^3/uL (140-400); RED BLOOD COUNT 3.84 x10^6/uL (3.50-5.40); RED CELL DISTRIBUTION WIDTH 13.5 % (11.5-14.5); WHITE BLOOD COUNT 6.8 x10^3/uL (4.0-11.0)
[2021-12-18 13:33] LABS: CALCIUM 9.3 mg/dL (8.5-10.1); CREATININE 1.1 mg/dL (0.6-1.0); GFR 46.9; POTASSIUM 3.9 mmol/L (3.5-5.1)
[2021-12-18 13:39] LABS: ALBUMIN 3.4 g/dL (3.4-5.0); ALBUMIN/GLOBULIN RATIO 0.9 (1.0-1.7); TOTAL BILIRUBIN 0.4 mg/dL (0.2-1.0); TOTAL PROTEIN 7.1 g/dL (6.4-8.2)
[2021-12-18 14:04] LABS: HYALINE CASTS, URINE MANY /HPF
[2021-12-18 14:05] LABS: BACTERIA,URINE 0 /HPF (0-FEW); RBC,URINE 20-40 /HPF (0-2)
--- NOTE | 2021-12-18 14:41 | RAD ---
EXAMINATION: CT head and cervical spine without IV contrast. INDICATION:86 years, Female, neck pain, possible seizure. COMPARISON: 05/25/2021 TECHNIQUE: Spiral acquisition of contiguous images from the skull base to the vertex were obtained. C T of the cervical spine was obtained using contiguous spiral imaging from the skull base to the upper thoracic level. Sagittal and coronal 2D reformatted series were provided by the technologist. Soft t issue and bone window algorithms were reviewed. Exposure: One or more of the following individualized dose reduction techniques were utilized for thi s examination: 1. Automated exposure control 2. Adjustment of the mA and/or kV according to patient size 3. Use of iterative reconstruction technique. FINDINGS: CT HEAD: Neither mass, midline shift, intracranial hemorrhage, acute/subacute ischemic changes, nor extraaxial fluid collections are seen. Similar mild brain parenchymal volume loss. Similar supratentorial periv entricular white matter hypodensities, indeterminate but most likely representing chronic recurrent h epatic disease. The paranasal sinuses, mastoid air cells, and middle ears are clear. The orbital cont ents appear within normal limits. CT CERVICAL SPINE: Anatomic alignment of the cervical spine is maintained. Neither fracture, subluxation, nor traumatic spondylolisthesis is seen. The vertebral body heights are preserved. Multilevel degenerative changes with disc space narrowing and osteophytes. Multilevel bilateral facet and uncovertebral arthropathy. There is no evidence of a large intraspinal hematoma. The prevertebral and paravertebral soft tissues are within normal limits. IMPRESSION: 1. No acute intracranial abnormality. 2. No acute fracture of the cervical spine. 3. Other chronic/incidental findings, as described above. Electronically signed by: Binh Elizabeth MD (12/18/2021 2:39 PM) [id number]
[2021-12-18] MEDS ORDERED: cefTRIAXone IV Push 1 GM VIAL. IVP ONE (14:45)
[2021-12-18] MEDS ORDERED: CEPH500C PO (14:51)
--- NOTE | 2021-12-18 14:57 | PHYS DOC ---
Past Medical History Past Medical History: CAD, Hypertension Additional Past Medical Histor: PVD, FM, CKD Past Surgical History: Hysterectomy, Other Additional Past Surgical Histo: RUE sx Smoking Status: Never Smoker Alcohol Use: None General Adult EDM: Chief Complaint: SEIZURE HPI: HPI: Patient is a 86 year old female who presents with episode of shaking for 15 seconds. This was witnessed by her daughter who was driving the car that the patient was in. Patient states that she felt pain in her neck and began to shake, she did not lose consciousness, she could hear her daughter asking her questions, this lasted about 10 seconds, after which she was completely at [facility]. A different episode similar to this happened in May of last year. She has been following with a neurologist who does not believe she is having seizures at this time. This episode did not present with a postictal phase. Patient is currently back to baseline and states that she feels well at this moment besides mild neck pain. Review of Systems: Review of Systems: Constitutional: Denies fever or chills. [] Eyes: Denies change in visual acuity. [] HENT: Denies nasal congestion or sore throat. [] Respiratory: Denies cough or shortness of breath. [] Cardiovascular: Denies chest pain or edema. [] GI: Denies abdominal pain, nausea, vomiting, bloody stools or diarrhea. [] : Denies dysuria. [] Musculoskeletal: Denies back pain or joint pain. Positive neck pain [] Integument: Denies rash. [] Neurologic: Denies headache, focal weakness or sensory changes. [] Endocrine: Denies polyuria or polydipsia. [] Lymphatic: Denies swollen glands. [] Psychiatric: Denies depression or anxiety. [] Heart Score: C/O Chest Pain: No Risk Factors: Risk Factors: DM, Current or recent (<one month) smoker, HTN, HLP, family history of CAD, obesity. Risk Scores: Score 0 - 3: 2.5% MACE over next 6 weeks - Discharge Home Score 4 - 6: 20.3% MACE over next 6 weeks - Admit for Clinical Observation Score 7 - 10: 72.7% MACE over next 6 weeks - Early Invasive Strategies Current Medications: Current Medications Medications (Trade) Dose Ordered Sig/Aroldo Start Time Stop Time Status Last Admin Dose Admin Ceftriaxone Sodium (Rocephin) 1 gm 1X ONCE 5/12/22 14:45 12/18/21 14:48 DC Sodium Chloride 1,000 ml @ 1,000 mls/hr 1X ONCE 12/18/21 13:15 12/18/21 14:14 DC 12/18/21 13:15 1,000 MLS/HR Allergies: Allergies: Allergies Coded Allergies Type Severity Reaction Last Updated Verified ciprofloxacin Allergy Severe Rash 07/12/17 Yes Sulfa (Sulfonamide Antibiotics) Allergy Mild Headache 12/07/13 Yes alendronate sodium Allergy Unknown Unknown 07/12/17 Yes nabumetone Allergy Unknown Nausea 07/12/17 Yes Physical Exam: PE: Constitutional: Well developed, well nourished, no acute distress, non-toxic appearance. [] HENT: Normocephalic, atraumatic, bilateral external ears normal, oropharynx moist, no oral exudates, nose normal. [] Eyes: PERRLA, EOMI, conjunctiva normal, no discharge. [] Neck: Normal range of motion, no tenderness, supple, no stridor. [] Cardiovascular:Heart rate regular rhythm, no murmur [] Lungs & Thorax: Bilateral breath sounds clear to auscultation [] Abdomen: Bowel sounds normal, soft, no tenderness, no masses, no pulsatile masses. [] Skin: Warm, dry, no erythema, no rash. [] Back: No tenderness, no CVA tenderness. [] Extremities: No tenderness, no cyanosis, no clubbing, ROM intact, no edema. [] Neurologic: Alert and oriented X 3, normal motor function, normal sensory function, no focal deficits noted. [] Psychologic: Affect normal, judgement normal, mood normal. [] Current Patient Data: Labs: Laboratory Tests Test 12/18/21 12:40 12/18/21 13:25 White Blood Count 6.8 x10^3/uL (4.0-11.0) Red Blood Count 3.84 x10^6/uL (3.50-5.40) Hemoglobin 12.6 g/dL (12.0-15.5) Hematocrit 38.0 % (36.0-47.0) Mean Corpuscular Volume 99 fL (79-100) Mean Corpuscular Hemoglobin 33 pg (25-35) Mean Corpuscular Hemoglobin Concent 33 g/dL (31-37) Red Cell Distribution Width 13.5 % (11.5-14.5) Platelet Count 255 x10^3/uL (140-400) Neutrophils (%) (Auto) 54 % (31-73) Lymphocytes (%) (Auto) 35 % (24-48) Monocytes (%) (Auto) 8 % (0-9) Eosinophils (%) (Auto) 2 % (0-3) Basophils (%) (Auto) 1 % (0-3) Neutrophils # (Auto) 3.7 x10^3/uL (1.8-7.7) Lymphocytes # (Auto) 2.4 x10^3/uL (1.0-4.8) Monocytes # (Auto) 0.6 x10^3/uL (0.0-1.1) Eosinophils # (Auto) 0.1 x10^3/uL (0.0-0.7) Basophils # (Auto) 0.1 x10^3/uL (0.0-0.2) Sodium Level 137 mmol/L (136-145) Potassium Level 3.9 mmol/L (3.5-5.1) Chloride Level 99 mmol/L (98-107) Carbon Dioxide Level 29 mmol/L (21-32) Anion Gap 9 (6-14) Blood Urea Nitrogen 22 mg/dL (7-20) H Creatinine 1.1 mg/dL (0.6-1.0) H Estimated GFR (Cockcroft-Gault) 46.9 BUN/Creatinine Ratio 20 (6-20) Glucose Level 119 mg/dL (70-99) H Calcium Level 9.3 mg/dL (8.5-10.1) Total Bilirubin 0.4 mg/dL (0.2-1.0) Aspartate Amino Transferase (AST) 20 U/L (15-37) Alanine Aminotransferase (ALT) 16 U/L (14-59) Alkaline Phosphatase 38 U/L (46-116) L Total Protein 7.1 g/dL (6.4-8.2) Albumin 3.4 g/dL (3.4-5.0) Albumin/Globulin Ratio 0.9 (1.0-1.7) L Urine Collection Type Unknown Urine Color (Auto) Light yellow Urine Turbidity Clear Urine pH (Auto) 6.0 (<5.0-8.0) Urine Specific [place] 1.012 (1.000-1.030) Urine Protein (Auto) Negative mg/dL (Negative) Urine Glucose (Auto)(UA) Negative mg/dL (Negative) Urine Ketones (Auto) Negative mg/dL (Negative) Urine Blood (Auto) Small (Negative) Urine Nitrite Negative (Negative) Urine Bilirubin (Auto) Negative (Negative) Urine Urobilinogen (Auto) Normal mg/dL (Normal) Urine Leukocyte Esterase (Auto) Small (Negative) Urine RBC 20-40 /HPF (0-2) Urine WBC 11-20 /HPF (0-4) Urine Squamous Epithelial Cells Many /LPF Urine Transitional Epithelial Cells Mod /LPF Urine Renal Epithelial Cells Few /LPF Urine Bacteria 0 /HPF (0-FEW) Urine Hyaline Casts Many /HPF Urine Mucus Slight /LPF Laboratory Tests 12/18/21 12:40 Laboratory Tests 12/18/21 12:40 Vital Signs: Vital Signs Date Time Temp Pulse Resp B/P (MAP) Pulse Ox O2 Delivery O2 Flow Rate FiO2 12/18/21 12:29 98.2 72 16 128/59 (82) 97 Room Air 98.2 EKG: EKG: [] Radiology/Procedures: Radiology/Procedures: PATIENT: WAI YEUNG ACCOUNT: [id number] : 1935 LOCATION: ER AGE: 86 SEX: F EXAM STATUS: REG ER ORD. PHYSICIAN: TARAS TRINIDAD MD REASON: possible seizure, neck pain PROCEDURE: CT HEAD AND CERVICAL SPINE WO EXAMINATION: CT head and cervical spine without IV contrast. INDICATION:86 years, Female, neck pain, possible seizure. COMPARISON: 05/25/2021 TECHNIQUE: Spiral acquisition of contiguous images from the skull base to the vertex were obtained. CT of the cervical spine was obtained using contiguous spiral imaging from the skull base to the upper thoracic level. Sagittal and coronal 2D reformatted series were provided by the technologist. Soft tissue and bone window algorithms were reviewed. Exposure: One or more of the following individualized dose reduction techniques were utilized for this examination: 1. Automated exposure control 2. Adjustment of the mA and/or kV according to patient size 3. Use of iterative reconstruction technique. FINDINGS: CT HEAD: Neither mass, midline shift, intracranial hemorrhage, acute/subacute ischemic changes, nor extraaxial fluid collections are seen. Similar mild brain parenchymal volume loss. Similar supratentorial periventricular white matter hypodensities, indeterminate but most likely representing chronic recurrent hepatic disease. The paranasal sinuses, mastoid air cells, and middle ears are clear. The orbital contents appear within normal limits. CT CERVICAL SPINE: Anatomic alignment of the cervical spine is maintained. Neither fracture, subluxation, nor traumatic spondylolisthesis is seen. The vertebral body heights are preserved. Multilevel degenerative changes with disc space narrowing and osteophytes. Multilevel bilateral facet and uncovertebral arthropathy. There is no evidence of a large intraspinal hematoma. The prevertebral and paravertebral soft tissues are within normal limits. IMPRESSION: 1. No acute intracranial abnormality. 2. No acute fracture of the cervical spine. 3. Other chronic/incidental findings, as described above. Electronically signed by: Nelson Elizabeth MD (12/18/2021 2:39 PM) [id number] DICTATED and SIGNED BY: NELSON ELIZABETH MD DATE: 12/18/21 1433 Impression: Urinary tract infection, musculoskeletal neck pain Course & Med Decision Making: Course & Med Decision Making Pertinent Labs and Imaging studies reviewed. (See chart for details) 86-year-old female seen and examined by myself. Patient at baseline during the exam. Exam very benign, review of systems noncontributory besides neck pain. Serum labs and urinalysis ordered as well as CT of the head and neck. Patient states that she felt neck pain preceding this episode, this could be due to neck pain, patient did not lose consciousness and remembers the event quite well, likely not a seizure. Reassuring that neurology has worked her up and no evidence of seizure activity has been found. She is not on any AEDs. Urinalysis did show urinary tract infection. Discussed findings with patient, patient started on Rocephin IV, given a prescription for Bactrim to finish at home. Patient discharged in stable hemodynamic condition, all questions answered, patient encouraged to follow-up with her primary care physician as well as neurologist. Patient agreed with the plan of action, patient given ER precautions as well. Dragon Disclaimer: Dragdarrion Disclaimer: This electronic medical record was generated, in whole or in part, using a voice recognition dictation system. Departure Departure Impression: Primary Impression: Urinary tract infection Condition: GOOD Patient Instructions: Urinary Tract Infection, [id number] Additional Instructions: Follow-up with your primary care physician in 1 week I recommend that you follow-up with your neurologist to notify them of this episode, however as I discussed with you this is not consistent with a seizure. Scripts Cephalexin (KEFLEX) 500 Mg Capsule 1 CAP PO TID for 7 Days, #21 CAP Prov: TARAS TRINIDAD MD 12/18/21 TARAS TRINIDAD MD December 18, 2021 14:57
[2021-12-18 15:01] VITALS: BP 117/58
== END 2021-12-18 15:13 | disposition home or self-care (01) ==
LOC: ER 12:20
DX: N39.0 Urinary tract infection, site not specified (principal); I12.9 Hypertensive chronic kidney disease with stage 1 through stage 4 chronic kidney disease, or unspecified chronic kidney disease; N18.9 Chronic kidney disease, unspecified; I25.10 Atherosclerotic heart disease of native coronary artery without angina pectoris; Z88.1 Allergy status to other antibiotic agents; Z88.2 Allergy status to sulfonamides; Z88.8 Allergy status to other drugs, medicaments and biological substances
CPT/HCPCS: 36415; 70450; 72125; 80053; 81001; 83605; 85025; 87086; 96361; 96374; 99284; J0696; J7030